=== PATIENT | male | born 1960 | race Caucasian/White ===

== ENCOUNTER 2018-11-20 03:28 | Observation (INO) | payer OTHER ==
[2018-11-20] MEDS ORDERED: ALBUTEROL/IPRATROPIUM (NEB) 3 ML AMP HHN (05:30)
[2018-11-20] MEDS ORDERED: ACETAMINOPHEN 325 MG TAB PO (05:30)
[2018-11-20] MEDS ORDERED: NACL 0.9% 3 ML SYG IV (05:30)
[2018-11-20] MEDS ORDERED: HYDROCODONE/APAP (5/325) TAB PO (05:30)
[2018-11-20] MEDS: ONDANSETRON 4 MG INJ IV (05:59)
[2018-11-20] MEDS: HYDROCODONE/APAP (5/325) TAB PO (05:59)
[2018-11-20 07:40] LABS: ADD MAN DIFF? NO
[2018-11-20 07:41] LABS: BASOPHILS % 0.2 % (0.0-2.0); HEMATOCRIT 39.1 % (42.0-52.0); LYMPHOCYTES # 0.9 10^3/ul (0.8-2.9); LYMPHOCYTES % 6.1 % (15.0-51.0); MEAN CORPUSCULAR HEMOGLOBIN 28.5 pg (29.0-33.0); MEAN CORPUSCULAR HGB CONC 33.2 g/dl (32.0-37.0); MEAN CORPUSCULAR VOLUME 85.7 fl (82.0-101.0); MEAN PLATELET VOLUME 8.7 fl (7.4-10.4); MONOCYTE # 1.1 10^3/ul (0.3-0.9); MONOCYTES % 7.6 % (0.0-11.0); NEUTROPHIL # 12.2 10^3/ul (1.6-7.5); NEUTROPHILS % 85.7 % (39.0-77.0); PLATELET COUNT 240 10^3/UL (140-415); RED BLOOD COUNT 4.56 10^6/ul (4.70-6.10); RED CELL DISTRIBUTION WIDTH 13.4 % (11.5-14.5)
[2018-11-20 07:41] LABS: WHITE BLOOD COUNT 14.3 10^3/ul (4.8-10.8)
[2018-11-20 07:56] LABS: HEMOGLOBIN A1C 5.6 % (0-5.9)
[2018-11-20 08:01] LABS: ALANINE AMINOTRANSFERASE 22 IU/L (13-69); ALBUMIN 4.6 g/dl (3.3-4.9); ALBUMIN/GLOBULIN RATIO 1.35; ALKALINE PHOSPHATASE 66 IU/L (42-121); ANION GAP 14 (5-13); ASPARTATE AMINO TRANSFERASE 36 IU/L (15-46); BILIRUBIN,INDIRECT 0.2 mg/dl (0-1.1); BILIRUBIN,TOTAL 0.2 mg/dl (0.2-1.3); BLOOD UREA NITROGEN 15 mg/dl (7-20); CALCIUM 9.1 mg/dl (8.4-10.2); CARBON DIOXIDE 29 mmol/L (21-31); CHLORIDE 98 mmol/L (97-110); CHOL/HDL RATIO 2.1 RATIO; CHOLESTEROL 231 mg/dl (100-200); CREATININE 0.57 mg/dl (0.61-1.24); Estimated GFR > 60 mL/min (>60); GLUCOSE 134 mg/dl (70-220); HDL CHOLESTEROL 107 mg/dl (30-78); LDL CHOLESTEROL,CALCULATED 110 mg/dl; MAGNESIUM 1.5 mg/dl (1.7-2.5); POTASSIUM 3.8 mmol/L (3.5-5.1); SODIUM 141 mmol/L (135-144); TRIGLYCERIDES 68 mg/dl (0-149)
[2018-11-20 08:15] LABS: CREATINE KINASE 112 IU/L (23-200)
[2018-11-20 08:16] LABS: LIPASE 85 U/L (23-300)
[2018-11-20 08:16] LABS: AMYLASE 84 U/L (11-123)
[2018-11-20 08:18] LABS: CK INDEX 0.6; CK-MB 0.68 ng/ml (0.0-2.4); TROPONIN-I < 0.012 ng/ml (0.000-0.120)
[2018-11-20 08:31] LABS: THYROID STIMULATING HORMONE 0.711 MIU/L (0.465-4.680)
[2018-11-20] MEDS: KETOROLAC 30 MG INJ IV ×2 (09:32→16:53)
[2018-11-20] MEDS: FAMOTIDINE 20 MG TAB PO ×2 (09:33→21:01)
[2018-11-20] MEDS: CHLORDIAZEPOXIDE 25 MG CAP PO ×3 (09:44→21:01)
[2018-11-20] MEDS: DEXTROSE 5%-0.45% NACL 1,000 ML IV ×3 (11:04→21:01)
[2018-11-20] MEDS: morphine 4 MG/ML VIAL IV ×2 (11:04→23:37)
[2018-11-20] MEDS ORDERED: LORAZEPAM 4 MG/ML VIAL IV (14:30)
[2018-11-20 15:03] LABS: CREATINE KINASE 102 IU/L (23-200)
[2018-11-20 15:19] LABS: CK INDEX 0.5; CK-MB 0.52 ng/ml (0.0-2.4); TROPONIN-I < 0.012 ng/ml (0.000-0.120)
[2018-11-20] MEDS: MAGNESIUM SULFATE 2 GM/50 ML 50 ML IVPB (16:32)
[2018-11-20 16:49] LABS: ETHANOL < 10.0 mg/dl (0-0)
[2018-11-21] MEDS: DEXTROSE 5%-0.45% NACL 1,000 ML IV ×4 (00:30→14:52)
[2018-11-21] MEDS: morphine 4 MG/ML VIAL IV ×2 (04:03→17:25)
[2018-11-21 05:11] LABS: HEMATOCRIT 37.3 % (42.0-52.0); HEMOGLOBIN 12.7 g/dl (14.0-18.0); MEAN CORPUSCULAR HEMOGLOBIN 28.9 pg (29.0-33.0); MEAN PLATELET VOLUME 9.8 fl (7.4-10.4); PLATELET COUNT 180 10^3/UL (140-415); POSITIVE DIFF @See below; RED BLOOD COUNT 4.39 10^6/ul (4.70-6.10); RED CELL DISTRIBUTION WIDTH 13.5 % (11.5-14.5)
[2018-11-21 05:11] LABS: WHITE BLOOD COUNT 11.3 10^3/ul (4.8-10.8)
[2018-11-21 05:14] LABS: ADD MAN DIFF? YES
[2018-11-21 05:29] LABS: ANION GAP 9 (5-13); BLOOD UREA NITROGEN 15 mg/dl (7-20); CALCIUM 8.5 mg/dl (8.4-10.2); CARBON DIOXIDE 29 mmol/L (21-31); CHLORIDE 96 mmol/L (97-110); CREATININE 0.67 mg/dl (0.61-1.24); Estimated GFR > 60 mL/min (>60); GLUCOSE 153 mg/dl (70-220); MAGNESIUM 2.3 mg/dl (1.7-2.5); PHOSPHORUS 2.2 mg/dl (2.5-4.9); POTASSIUM 3.4 mmol/L (3.5-5.1); SODIUM 134 mmol/L (135-144)
[2018-11-21 05:32] LABS: LIPASE 67 U/L (23-300)
[2018-11-21] MEDS: FAMOTIDINE 20 MG TAB PO ×2 (08:31→20:45)
[2018-11-21] MEDS: CHLORDIAZEPOXIDE 25 MG CAP PO ×3 (08:31→20:45)
[2018-11-21] MEDS: KETOROLAC 30 MG INJ IV ×2 (08:40→19:43)
[2018-11-21 09:34] LABS: ANISOCYTOSIS 1+ (0-0); BAND NEUTROPHILS #M 3.9 10^3/ul (0.0-0.6); BAND NEUTROPHILS % (M) 35 % (0-4); LYMPHOCYTES #M 0.7 10^3/ul (0.8-2.9); LYMPHOCYTES % (M) 7 % (15-51); MONOCYTE #M 0.1 10^3/ul (0.3-0.9); MONOCYTES % (M) 1 % (0-11); MYELOCYTES #M 0.3 10^3/ul (0.0-0.0); MYELOCYTES % (M) 3 % (0-0); PLATELET ESTIMATE NORMAL; POIKILOCYTOSIS 1+ (0-0); POLYCHROMASIA 1+ (0-0); SEG NEUT #M 6.5 10^3/ul (1.6-7.5); SEGMENTED NEUTROPHILS (M) % 54 % (39-77); SMUDGE%M 2 % (0-0)
[2018-11-21] MEDS: MULTIVITAMINS 10 ML, THIAMINE 100 MG, FOLIC ACID 1 MG in SOD CHLORIDE 0.9% 1,000 ML IVPB (12:15)
[2018-11-21] MEDS: FUROSEMIDE 20 MG TAB PO (13:26)
[2018-11-21] MEDS: LISINOPRIL 5 MG TAB PO (13:27)
[2018-11-21] MEDS: POTASSIUM PHOSPHATE 20 MEQ in SOD CHLORIDE 0.9% 250 ML IVPB (14:58)
[2018-11-21] MEDS: HYDROCODONE/APAP (5/325) TAB PO (23:34)
[2018-11-22] MEDS: DEXTROSE 5%-0.45% NACL 1,000 ML IV ×2 (00:30→06:22)
[2018-11-22 05:38] LABS: HEMATOCRIT 34.7 % (42.0-52.0); HEMOGLOBIN 11.7 g/dl (14.0-18.0); MEAN CORPUSCULAR HGB CONC 33.7 g/dl (32.0-37.0); MEAN CORPUSCULAR VOLUME 85.9 fl (82.0-101.0); MEAN PLATELET VOLUME 10.2 fl (7.4-10.4); PLATELET COUNT 127 10^3/UL (140-415); POSITIVE DIFF @See below; RED BLOOD COUNT 4.04 10^6/ul (4.70-6.10); RED CELL DISTRIBUTION WIDTH 13.5 % (11.5-14.5)
[2018-11-22 05:53] LABS: ADD MAN DIFF? YES
[2018-11-22] MEDS: FUROSEMIDE 20 MG TAB PO (06:21)
[2018-11-22 06:24] LABS: ANION GAP 7 (5-13); BLOOD UREA NITROGEN 19 mg/dl (7-20); CALCIUM 8.3 mg/dl (8.4-10.2); CARBON DIOXIDE 27 mmol/L (21-31); CHLORIDE 99 mmol/L (97-110); CREATININE 0.73 mg/dl (0.61-1.24); Estimated GFR > 60 mL/min (>60); GLUCOSE 112 mg/dl (70-220); POTASSIUM 3.4 mmol/L (3.5-5.1); SODIUM 133 mmol/L (135-144)
[2018-11-22 06:43] LABS: MAGNESIUM 2.4 mg/dl (1.7-2.5)
[2018-11-22 06:43] LABS: PHOSPHORUS 2.3 mg/dl (2.5-4.9)
[2018-11-22 08:17] LABS: ANISOCYTOSIS 1+ (0-0); BAND NEUTROPHILS #M 3.9 10^3/ul (0.0-0.6); BAND NEUTROPHILS % (M) 39 % (0-4); EOSINOPHILS % (M) 4 % (0-7); GIANT THROMBO% (M) 2 % (0-0); LYMPHOCYTES #M 0.4 10^3/ul (0.8-2.9); LYMPHOCYTES % (M) 4 % (15-51); MONOCYTE #M 0.1 10^3/ul (0.3-0.9); MONOCYTES % (M) 1 % (0-11); PLATELET ESTIMATE DECREASED; POIKILOCYTOSIS 1+ (0-0); SEG NEUT #M 5.6 10^3/ul (1.6-7.5); SEGMENTED NEUTROPHILS (M) % 52 % (39-77); SMUDGE%M 3 % (0-0)
[2018-11-22] MEDS: FAMOTIDINE 20 MG TAB PO (09:10)
[2018-11-22] MEDS: CHLORDIAZEPOXIDE 25 MG CAP PO ×2 (09:11→13:50)
[2018-11-22] MEDS: LISINOPRIL 5 MG TAB PO (09:11)
[2018-11-22] MEDS: KETOROLAC 30 MG INJ IV (09:15)
[2018-11-22] MEDS: MULTIVITAMINS 10 ML, THIAMINE 100 MG, FOLIC ACID 1 MG in SOD CHLORIDE 0.9% 1,000 ML IVPB (09:16)
[2018-11-22] MEDS: POTASSIUM PHOSPHATE 20 MEQ in SOD CHLORIDE 0.9% 250 ML IVPB (11:18)
[2018-11-22] MEDS: HYDROCODONE/APAP (5/325) TAB PO (11:21)
== END 2018-11-22 17:25 | disposition left against medical advice (07) ==
LOC: MS1 03:28
DX: K85.20 Alcohol induced acute pancreatitis without necrosis or infection (principal); F10.10 Alcohol abuse, uncomplicated
CPT/HCPCS: 80048; 80053; 80061; 80307; 82150; 82550; 82553; 83036; 83690; 83735; 84100; 84443; 84484; 85025; 93306; 99217